=== PATIENT | male | born 1965 | race Caucasian/White ===

== ENCOUNTER 2019-01-28 07:08 | Day surgery (SDC) | payer BC ==
[~2019-01-28 07:08] MED LIST: FLEXERIL PO; LIPITOR20 M1 PO; LISINOPRIL20 MG PO; LORTAB5 OR; MAXIDE1 COMBO PO; NO MEDS; NORVASC5 M1 PO; PERCOCET 5/325M1 TAB PO
[2019-01-28 08:42] VITALS: BP 105/63
== END 2019-01-28 08:57 | disposition home or self-care (01) | DRG 395 ==
LOC: ENDO 07:08 → ORM 09:15
PROVIDERS: ATTEND Surgery
PROC: 0DJD8ZZ Inspection of Lower Intestinal Tract, Via Natural or Artificial Opening Endoscopic (ICD-10-PCS; principal; 2019-01-28)
DX: K64.8 Other hemorrhoids (principal); I10 Essential (primary) hypertension; F17.210 Nicotine dependence, cigarettes, uncomplicated

== ENCOUNTER 2019-04-01 10:19 | Observation (INO) | payer BC ==
[~2019-04-01] VITALS: Ht 170.2 cm; Wt 118.0 kg
[2019-04-01] VITALS (15 sets, daily range): BP systolic 71–111; BP diastolic 43–71
[2019-04-01 11:04] LABS: HEMATOCRIT 40.2 % (39.0-50.0); HEMOGLOBIN 13.5 g/dl (14.0-18.0); IMMATURE GRANULOCYTES 0.7 % (0.0-5.0); MEAN CORPUSCULAR HGB 29.7 pG CALC (26.0-32.0); MEAN CORPUSCULAR HGB CONC 33.6 g/L CALC (32.0-36.0); NEUT# 10.52 thou/uL (1.82-7.42); RED BLOOD COUNT 4.55 mill/uL (4.70-6.10); RED CELL DISTRI WIDTH 12.6 % (11.5-15.5)
[2019-04-01 11:09] LABS: ALBUMIN 4.7 g/dL (3.2-5.0); ALKALINE PHOSPHATASE 74 u/l (38-126); ANION GAP 19 (6-22 (CALC)); BILIRUBIN, TOTAL 0.7 mg/dL (0.0-1.4); BUN 19 mg/dL (9-20); BUN/CREATININE RATIO 14 (12-20 (CALC)); CARBON DIOXIDE 26 mmol/l (22-30); CHLORIDE 94 mmol/l (95-108); CREATININE 1.4 mg/dL (0.7-1.3); GFR 53 ML/MIN (>=60 (CALC)); GFR FOR AFR.AMER. > 60 ML/MIN (>=60 (CALC)); POTASSIUM 3.4 mmol/l (3.5-5.1); SGOT/AST 64 u/l (17-59); TOTAL PROTEIN 8.3 g/dL (6.3-8.2)
[2019-04-01 11:10] LABS: SODIUM 136 mmol/l (137-146)
[2019-04-01 11:13] LABS: MEAN CELL VOLUME 88.4 fL CALC (80.0-100.0)
[2019-04-01 14:08] LABS: URINE BILIRUBIN - DIPSTICK NEGATIVE (NEGATIVE); URINE BLOOD DIPSTICK SMALL (NEGATIVE); URINE COLOR YELLOW; URINE GLUCOSE - DIPSTICK NEGATIVE (NEGATIVE); URINE KETONE NEGATIVE (NEGATIVE); URINE LEUK ESTERASE NEGATIVE (NEGATIVE); URINE NITRITE - DIPSTICK NEGATIVE (Negative); URINE PROTEIN - DIPSTICK TRACE mg/dL (NEG-TRACE); URINE UROBILINOGEN - DIPSTICK 0.2 E.U./dL (0.2)
[2019-04-01 14:20] LABS: URINE MUCUS FEW hpf (NONE-FEW)
[2019-04-02] VITALS (22 sets, daily range): BP systolic 86–102; BP diastolic 42–69
[2019-04-02 05:21] LABS: HEMATOCRIT 37.3 % (39.0-50.0); HEMOGLOBIN 12.2 g/dl (14.0-18.0); MEAN CELL VOLUME 91.2 fL CALC (80.0-100.0); MEAN CORPUSCULAR HGB 29.8 pG CALC (26.0-32.0); MEAN CORPUSCULAR HGB CONC 32.7 g/L CALC (32.0-36.0); RED BLOOD COUNT 4.09 mill/uL (4.70-6.10); RED CELL DISTRI WIDTH 12.8 % (11.5-15.5)
[2019-04-02 05:30] LABS: ANION GAP 12 (6-22 (CALC)); BUN 15 mg/dL (9-20); BUN/CREATININE RATIO 13 (12-20 (CALC)); CARBON DIOXIDE 25 mmol/l (22-30); CHLORIDE 99 mmol/l (95-108); CREATININE 1.2 mg/dL (0.7-1.3); GFR > 60 ML/MIN (>=60 (CALC)); GFR FOR AFR.AMER. > 60 ML/MIN (>=60 (CALC)); POTASSIUM 3.9 mmol/l (3.5-5.1); SODIUM 132 mmol/l (137-146)
[2019-04-03] VITALS (24 sets, daily range): BP systolic 86–136; BP diastolic 55–75
[2019-04-03 05:16] LABS: HEMATOCRIT 33.6 % (39.0-50.0); HEMOGLOBIN 11.1 g/dl (14.0-18.0); IMMATURE GRANULOCYTES 0.2 % (0.0-5.0); MEAN CELL VOLUME 90.1 fL CALC (80.0-100.0); MEAN CORPUSCULAR HGB 29.8 pG CALC (26.0-32.0); NEUT# 4.07 thou/uL (1.82-7.42); RED BLOOD COUNT 3.73 mill/uL (4.70-6.10); RED CELL DISTRI WIDTH 12.6 % (11.5-15.5)
[2019-04-03 05:43] LABS: ALBUMIN 3.8 g/dL (3.2-5.0); ALKALINE PHOSPHATASE 56 u/l (38-126); ANION GAP 13 (6-22 (CALC)); BUN 13 mg/dL (9-20); BUN/CREATININE RATIO 14 (12-20 (CALC)); CARBON DIOXIDE 25 mmol/l (22-30); CHLORIDE 103 mmol/l (95-108); CREATININE 0.9 mg/dL (0.7-1.3); GFR > 60 ML/MIN (>=60 (CALC)); GFR FOR AFR.AMER. > 60 ML/MIN (>=60 (CALC)); SGOT/AST 56 u/l (17-59); SODIUM 137 mmol/l (137-146)
[2019-04-03 05:49] LABS: BILIRUBIN, TOTAL 0.3 mg/dL (0.0-1.4); TOTAL PROTEIN 6.5 g/dL (6.3-8.2)
[2019-04-04] VITALS (12 sets, daily range): BP systolic 100–158; BP diastolic 55–80
[2019-04-04] MEDS ORDERED: TAM75CAP PO (17:28)
[2019-04-04] MEDS ORDERED: ZITHROMAX500 MG PO (17:38)
[2019-04-04] MEDS ORDERED: PREDNISONE10 MG PO (17:38)
[2019-04-04] MEDS ORDERED: BIOTUSSIN PO (17:40)
== END 2019-04-04 18:41 | disposition home or self-care (01) | DRG 195 ==
LOC: ED 10:19 → ED-I 11:00 → ED 11:00 → ED-I 12:55 → ED 13:10 → ICU 13:11
PROVIDERS: Nurse Practitioner Family; ADMIT Internal Medicine; ATTEND Internal Medicine
DX: J10.1 Influenza due to other identified influenza virus with other respiratory manifestations (principal); I95.9 Hypotension, unspecified; I10 Essential (primary) hypertension; R09.02 Hypoxemia; R11.2 Nausea with vomiting, unspecified; R19.7 Diarrhea, unspecified
CPT/HCPCS: G9019; J1650; P9047; Q9967